=== PATIENT | male | born 1950 | race Caucasian/White ===

== ENCOUNTER 2017-12-19 12:06 | Inpatient (IN) | payer MEDICARE ==
[~2017-12-19] VITALS: Ht 167.6 cm; Wt 98.0 kg
[2017-12-19] MEDS ORDERED: XANAX0.5 MG PO (12:49)
[2017-12-19] MEDS ORDERED: AMITRIPTYLIN25 MG PO (12:49)
[2017-12-19] MEDS ORDERED: ESCITALOPRAM OX10 MG PO (12:50)
[2017-12-19] MEDS ORDERED: ADDERALL10 MG PO (12:50)
[2017-12-19] MEDS ORDERED: NAMENDA10 MG PO (12:50)
[2017-12-22] VITALS (8 sets, daily range): BP systolic 89–126; BP diastolic 53–73
[2017-12-22 08:12] LABS: ACT PARTIAL THROMBO TIME 28.8 SECONDS (20.0-32.5); INTERNATIONAL NORMALIZED RATIO 0.9 RATIO (0.7-1.3)
[2017-12-23 00:18] VITALS: BP 120/49
[2017-12-23 04:28] VITALS: BP 128/75
[2017-12-23 05:14] LABS: HEMOGLOBIN 13.4 g/dl (14.0-18.0)
[2017-12-23 07:21] VITALS: BP 103/40
[2017-12-23] MEDS ORDERED: PERCOCET 10/31 COMBO PO (12:02)
== END 2017-12-23 13:13 | disposition home health service (06) | DRG 483 ==
LOC: MS2 12-22 07:16
PROVIDERS: ADMIT Orthopaedic Surgery; ATTEND Internal Medicine
PROC: 0RRJ00Z Replacement of Right Shoulder Joint with Reverse Ball and Socket Synthetic Substitute, Open Approach (ICD-10-PCS; principal; 2017-12-22)
PROC: 0LS30ZZ Reposition Right Upper Arm Tendon, Open Approach (ICD-10-PCS; 2017-12-22)
DX: M19.011 Primary osteoarthritis, right shoulder (principal); G93.49 Other encephalopathy; F17.210 Nicotine dependence, cigarettes, uncomplicated; M75.121 Complete rotator cuff tear or rupture of right shoulder, not specified as traumatic; S46.211A Strain of muscle, fascia and tendon of other parts of biceps, right arm, initial encounter; F32.9 Major depressive disorder, single episode, unspecified; F41.9 Anxiety disorder, unspecified; F90.0 Attention-deficit hyperactivity disorder, predominantly inattentive type; Z96.643 Presence of artificial hip joint, bilateral; X58.XXXA Exposure to other specified factors, initial encounter; Z01.818 Encounter for other preprocedural examination; I10 Essential (primary) hypertension; G47.30 Sleep apnea, unspecified; Z72.89 Other problems related to lifestyle; Z97.2 Presence of dental prosthetic device (complete) (partial)
CPT/HCPCS: J2710

== ENCOUNTER 2017-12-29 12:22 | Emergency (ER) | payer MEDICARE ==
[~2017-12-29] VITALS: Ht 167.6 cm; Wt 97.7 kg
[~2017-12-29 12:22] MED LIST: ADDERALL10 MG PO; AMITRIPTYLIN25 MG PO; ESCITALOPRAM OX10 MG PO; NAMENDA10 MG PO; PERCOCET 10/31 COMBO PO; XANAX0.5 MG PO
[2017-12-29] MEDS ORDERED: VALACYCLOVIR HCL1 GM PO (14:32)
[2017-12-29] MEDS ORDERED: CEPHALEXIN500 M1 PO (16:13)
[2017-12-29 16:17] VITALS: BP 132/78
== END 2017-12-29 16:17 | disposition home or self-care (01) ==
LOC: ED 12:22
DX: B02.9 Zoster without complications (principal); R22.31 Localized swelling, mass and lump, right upper limb; Z98.890 Other specified postprocedural states; F17.210 Nicotine dependence, cigarettes, uncomplicated